=== PATIENT | female | born 1975 | race African-American/Black ===

== ENCOUNTER 2018-07-28 07:27 | Emergency (ER) | payer MEDICAID, OTHER ==
[~2018-07-28] VITALS: Ht 162.6 cm; Wt 93.0 kg
[~2018-07-28 07:27] MED LIST: IBUPROFEN600 MG ORAL
[2018-07-28 07:31] VITALS: BP 126/70
[2018-07-28] MEDS ORDERED: IRON159 MG PO (07:35)
--- NOTE | 2018-07-28 07:37 | Emergency Room Report ---
History of Present Illness General Chief Complaint: Upper Extremity Injury Source: Patient Present Illness HPI Patient presents with complaints of injury to her left upper arm reports that yesterday approximately 3 in the afternoon she was reaching backwards to grab her purse from the Backseat and essentially as she was attempting to lift the purse she felt pain to the antecubital fossa region some radiation midway up the arm as well She has been having pain since then denies any bruises denies any discomfort to her fingers she has some discomfort going up to the shoulder itself as well Denies any neck pain denies any focal weakness Pain is worse with attempts of flexing her arm upward Allergies: Coded Allergies: No Known Allergies (Unverified , 12/23/13) Patient History Past Medical History: see triage record Pertinent Family History: none Reviewed Nursing Documentation: PMH: Agreed; PSxH: Agreed Review of Systems All Other Systems: negative except mentioned in HPI Physical Exam 99% on ra Sp02 EP Interpretation: reviewed, normal General Appearance: well appearing Head: normocephalic, atraumatic Eyes: bilateral eye PERRL, bilateral eye EOMI ENT: hearing grossly normal, normal pharynx Neck: supple Respiratory: lungs clear, no retraction, no accessory muscle use Cardiovascular #1: regular rate, rhythm Gastrointestinal: non tender, soft Musculoskeletal: other - No obvious swelling or bruising at the site of discomfort, patient has a small area of bruise more distally on the forearm which she reports is from her IV from receiving iron transfusion. Neurovascularly intact on the left arm, appropriate digital editor patient has discomfort with attempting to fully flex at the bicep region no obvious palpable mass is noted Neurologic: alert, oriented x3, responsive Skin: other - As above Lymphatic: no adenopathy Medical Decision Making Diagnostic Impression: Primary Impression: Sprain and strain Additional Impressions: Muscle tear Biceps muscle tear ER Course Multiple differentials and consideration including but not limited to muscle sprain/strain Muscle tear Underlying fractures Vascular pathology Patient's clinical exam is consistent with likely muscle sprain, microtear cannot be fully ruled out, there is no obvious hematoma or swelling making the likelihood of full tear less likely However still possibility Patient was provided with a sling pain medication and requires continued follow- up As further studies such as MRI could be required to fully diagnose if symptoms are not improving Status: improved Disposition: HOME, SELF-CARE Condition: Improved Additional Instructions: Patient is provided with the discharge instructions notified to follow up with primary doctor in the next 2-3 days otherwise return to the er with any worsening symptoms. Please note that this report is being documented using DRAGON technology. This can lead to erroneous entry secondary to incorrect interpretation by the dictating instrument. Pawel Hussein DO Jul 28, 2018 07:37
--- NOTE | 2018-07-28 07:40 | NUR ---
ED Nurse Note: Patient presents to ER due to left shoulder pain that radiates to LUE. She was reaching for her backpack from the front passenger seat and pulled left shoulder yesterday ~ 1500. Reports increased pain with ROM and lifting. Attempted to relive pain at home with medication and rest. No facial grimacing or guarding noted.
--- NOTE | 2018-07-28 07:53 | NUR ---
ED Nurse Note: Applied sling to left shoulder as ordered.
[2018-07-28] MEDS ORDERED: ROBAXIN-750750 MG PO (07:57)
[2018-07-28] MEDS ORDERED: IBUPROFEN600 MG ORAL (07:57)
[2018-07-28] MEDS ORDERED: Methocarbamol 750mg tab ORAL ONE (08:00)
[2018-07-28 08:07] VITALS: BP 126/70
--- NOTE | 2018-07-28 08:08 | NUR ---
ER DISCHARGE NOTE: Patient is cleared to be discharged per ERMD, pt is aox4, on room air, with stable vital signs. pt was given dc and prescription instructions, pt was able to verbalize understanding, pt is able to ambulate with steady gait. pt took all belongings.
== END 2018-07-28 08:10 | disposition home or self-care (01) ==
LOC: EMR 07:43
DX: S46.212A Strain of muscle, fascia and tendon of other parts of biceps, left arm, initial encounter (principal); T14.8XXA Other injury of unspecified body region, initial encounter; X50.1XXA Overexertion from prolonged static or awkward postures, initial encounter; Y92.9 Unspecified place or not applicable
CPT/HCPCS: 99282